=== PATIENT | male | born 1990 ===

== ENCOUNTER 2016-07-18 16:53 | Emergency (ER) | payer OTHER ==
[~2016-07-18] VITALS: Ht 175.3 cm; Wt 56.7 kg
--- NOTE | 2016-07-18 18:27 | ED GENERAL ADULT ---
History of Present Illness General Chief Complaint: Upper Respiratory Sx/Fever Stated Complaint: COUGH VALENCIA SORE THROAT FEVER XS 3 DAYS Source: patient Exam Limitations: no limitations Vital Signs & Intake/Output Vital Signs & Intake/Output Vital Signs Date Time Temp Pulse Resp B/P B/P Pulse O2 O2 Flow FiO2 Mean Ox Delivery Rate 07/19 2047 100.1 07/18 1658 103.5 07/18 1656 103.5 100 16 129/85 98 Allergies Coded Allergies: No Known Drug Allergies (NKDA 07/18/16) Reconcile Medications No Known Home Medications Triage Note: FEVER ACHES SINCE SUNDAY. PT STATES HE BEGAN VOMITING THIS AM AND HAD DIARRHEA YESTERDAY. Triage Nurses Notes Reviewed? yes Onset: Abrupt Duration: day(s): Timing: recent history HPI: 07/18/16 6:30 PM This is a 25-year-old man who presents to the emergency department complaining of nasal congestion, sore throat, cough, low back pain and severe myalgias over the past 72 hours. No abdominal pain and no vomiting. The onset of the symptoms were abrupt, the duration was just the past 72 hours, the severity is significant as his symptoms required him to come to the emergency department for care. He has associated sore throat cough and fever. Nursing note appreciated. The patient denied headache or neck pain to me. (ISAURO PRESTON DO) Past History Travel History Traveled to [place] past 21 day No Medical History Any Pertinent Medical History? see below for history Surgical History Surgical History: non-contributory Psychosocial History What is your primary language Polish Tobacco Use: Current Daily Use Daily Tobacco Use Amount/Type: => 5 Cigarettes daily ETOH Use: occasional use Illicit Drug Use: denies illicit drug use Family History Hx Contributory? No (ISAURO PRESTON DO) Review of Systems Review of Systems Constitutional: Reports: fever. EENTM: Reports: throat pain. Denies: visual changes. Respiratory: Reports: cough. Denies: short of breath. Cardiovascular: Denies: chest pain. GI: Denies: abdominal pain. Genitourinary: Reports: no symptoms. Musculoskeletal: Reports: muscle pain. Skin: Denies: rash. Neurological/Psychological: Denies: headache. Hematologic/Endocrine: Denies: bruising, bleeding. (ISAURO PRESTON DO) Physical Exam Physical Exam General Appearance: well developed/nourished, alert, awake, anxious, mild distress Head: atraumatic, normal appearance Eyes: Bilateral: normal appearance, PERRL, EOMI. Ears, Nose, Throat: pharyngeal erythema Neck: supple Respiratory: rhonchi Cardiovascular: regular rate/rhythm Peripheral Pulses: 4+ radial (R), 4+ radial (L) Gastrointestinal: soft, non-tender Back: normal range of motion, muscle spasm Extremities: normal inspection, normal range of motion, no edema Neurologic/Psych: no motor/sensory deficits, awake, alert, oriented x 3 Skin: intact, normal color, warm/dry Comments: No nuchal rigidity. No Kernig's or Brudzinski sign. No photophobia. Core Measures ACS in differential dx? No CVA/TIA Diagnosis: No Severe Sepsis Present: No Septic Shock Present: No (ISAURO PRESTON DO) Progress Differential Diagnoses I considered the following diagnoses in my evaluation of the patient: Plan of Care: Orders Procedure Date/time Status RAPID VIRAL INFLUENZA A 07/19 1839 Complete MONOSPOT 07/19 1839 Complete COMPREHENSIVE METABOLIC PANEL 07/19 1839 Complete CBC WITHOUT DIFFERENTIAL 07/19 1839 Complete THROAT CULTURE W/QUICK STREP 07/18 170 Active Laboratory Tests 07/18/161954: CBC w Diff NO MAN DIFF REQ, RBC 4.80, MCV 86.1, MCH 28.6, RDW 12.7, MPV 7.9, Gran % 74.7, Lymphocytes % 12.9 L, Monocytes % 11.1 H, Eosinophils % 0, Basophils % 1.3, Absolute Granulocytes 7.5 H, Absolute Lymphocytes 1.3, Absolute Monocytes 1.1 H, Absolute Eosinophils 0, Absolute Basophils 0.1, PUBS MCHC 33.3, Infectious Lyon Titer NEGATIVE 07/18/16 1934: Anion Gap 11, Estimated GFR > 60, BUN/Creatinine Ratio 11.1, Glucose 95, Calcium 8.8, Total Bilirubin 0.5, AST 22, ALT 45, Alkaline Phosphatase 55, Total Protein 6.6, Albumin 3.8, Globulin 2.8, Albumin/Globulin Ratio 1.4 Microbiology 07/19 2011 NASOPHARYN: Influenza Virus A & B Rapid Smear - COMP Initial ED EKG: none (ISAURO PRESTON DO) Comments: 07/18/2016 7:23:14 PM patient signed out to me 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 07/18/2016 9:31:38 PM I have updated Bill on his test results. He states he feels better and his fever has improved. His mother states that he looks much better overall. (MURTAZA DANIEL,ISAURO Webster) Departure Departure Condition: Stable Clinical Impression Primary Impression: Hyperpyrexia Secondary Impressions: Viral syndrome Referrals: LELA NIEVES,ROBERTA Ochoa (PCP/Family) Departure Forms: Customer Survey General Discharge Information Prescriptions: Current Visit Scripts No Known Home Medications Comments 07/18/16 7:29 PM The patient was signed out to Dr. Chavez at 7 PM. He was treated with IV fluids. IV Toradol. Labs were sent. Chest x-ray was negative. Rapid strep was negative. (ISAURO PRESTON DO) Departure Disposition: HOME OR SELF CARE Additional Instructions: Maintain a good fluid intake as discussed. Electrolyte-containing beverages if unable to tolerate solid food. Ibuprofen 600 mg alternating with extra strength Tylenol every 3 hours as needed for fever control. Follow-up with your primary care physician for reevaluation in 2 days. Return if any concerns or sudden worsening. Please note that there might be incidental findings in your evaluation that are unrelated to the current emergency department visit. Please notify your primary care doctor about this emergency department visit in order to obtain and review all of the testing performed so that these incidental findings can be monitored as needed. If you had an x-ray performed, please understand that some fractures may not be seen on the initial set of x-rays. If your symptoms persist you might need a repeat set of x-rays to check for such a fracture. If you had a laceration evaluated, please understand that foreign bodies such as glass or wood may not be visible to the naked eye or on plain x-rays. If the wound becomes red, swollen, increasingly more painful or if there is any drainage from the wound, please have it reevaluated by a physician for the possibility of a retained foreign body. Thank you for choosing the Emergency Department for your care. It was a pleasure to serve you today. Isauro Chavez M.D. [facility] (MURTAZA DANIEL,ISAURO Webster) Critical Care Note Critical Care Note Critical Care Time: non-applicable (ISAURO PRESTON DO)
--- NOTE | 2016-07-18 19:06 | RADIOLOGY REPORT ---
EXAMINATION: XR CHEST CLINICAL INFORMATION: Fever and cough COMPARISON: None TECHNIQUE: 2 views of the chest were obtained. FINDINGS: No significant abnormality is noted involving the heart, lungs, mediastinum, bony thorax or soft tissues. IMPRESSION: Unremarkable examination.
[2016-07-18 20:07] LABS: ABSOLUTE BASOPHIL COUNT 0.1 /CUMM (0.0-0.2); ABSOLUTE EOSINOPHIL COUNT 0 /CUMM (0.0-0.7); ABSOLUTE GRANULOCYTE CT 7.5 /CUMM (1.4-6.5); ABSOLUTE LYMPH COUNT 1.3 /CUMM (1.2-3.4); ABSOLUTE MONOCYTE COUNT 1.1 /CUMM (0.10-0.60); BASOPHIL % 1.3 % (0.0-2.0); EOSINOPHIL % 0 % (0-5); GRANULOCYTE % 74.7 % (42.2-75.2); HEMATOCRIT 41.4 % (42-52); MEAN CORPUSCULAR HGB 28.6 PG (27.0-31.0); MEAN CORPUSCULAR HGB CONC 33.3 G/DL (33.0-37.0); MEAN CORPUSCULAR VOLUME 86.1 FL (80.0-94.0); MEAN PLATELET VOLUME 7.9 FL (7.4-10.4); PLATELET COUNT 200 /CUMM (130-400); RBC DISTRIBUTION WIDTH 12.7 % (11.5-14.5)
[2016-07-18 21:32] VITALS: BP 137/64
== END 2016-07-18 22:37 ==
LOC: ERH 16:53
PROVIDERS: Emergency Medicine
DX: B34.9 Viral infection, unspecified (principal)
CPT/HCPCS: 87804; 87804-59; 96374; J1885

== ENCOUNTER 2017-07-17 11:54 | Emergency (ER) | payer OTHER ==
[2017-07-17 14:10] VITALS: BP 129/83
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
[2017-07-17] MEDS ORDERED: LEXAPRO20 M1 PO (14:46)
--- NOTE | 2017-07-17 15:46 | RADIOLOGY REPORT ---
EXAMINATION: XR CERVICAL SPINE CLINICAL INFORMATION: Neck pain. COMPARISON: Radiographs dated 01/13/2011. TECHNIQUE: Frontal, odontoid and lateral views of the cervical spine are submitted. FINDINGS: Vertebral body heights and alignment are normal. The disc spaces are well-maintained. No fracture or spondylolisthesis is seen. The posterior elements are intact. The dens and C7-T1 interface are normal. There is no prevertebral soft tissue swelling. IMPRESSION: Unremarkable examination.
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
[2017-07-17] MEDS ORDERED: CYCLOBENZAPRINE10 M1 PO (16:03)
[2017-07-17] MEDS ORDERED: IBUPROFEN600 M1 PO (16:03)
== END 2017-07-17 16:11 ==
LOC: ERH 11:54
DX: S16.1XXA Strain of muscle, fascia and tendon at neck level, initial encounter (principal); S39.012A Strain of muscle, fascia and tendon of lower back, initial encounter; V89.2XXA Person injured in unspecified motor-vehicle accident, traffic, initial encounter
CPT/HCPCS: 72050; 72100